=== PATIENT | male | born 1950 | race Caucasian/White ===

== ENCOUNTER → 2023-11-24 | Outpatient (CLI) | payer MEDICARE ==
[2023-11-24 15:38] LABS: VLDL Calculation 15.64 mg/dL (5.00-40.00)
[2023-11-24 15:39] LABS: ALT 24 U/L (10-49); AST 35 U/L (14-35); Albumin 4.3 g/dL (3.8-4.9); Albumin/Globulin Ratio 1.54 Ratio (1.60-3.17); Alkaline Phosphatase 94 U/L (41-126); BUN/Creat Ratio 12.29 Ratio (12.00-20.00); Blood Urea Nitrogen 8.6 mg/dL (9.0-27.0); Calcium 9.6 mg/dL (8.7-10.3); Carbon Dioxide 28.2 mmol/L (21.6-31.8); Chloride 100 mmol/L (96-109); Globulin 2.8 g/dL (1.6-3.3); Glucose 94 mg/dL (70-110); LDL Cholesterol,Calculated 73.9 mg/dL (0.0-131.0); Potassium 4.3 mmol/L (3.5-5.5); Sodium 141 mmol/L (135-145); T4, Free (Free Thyroxine) 1.09 ng/dL (0.80-1.80); Total Bilirubin 0.5 mg/dL (0.3-1.2); Total Protein 7.1 g/dL (6.2-8.2)
[2023-11-24 15:42] LABS: PSA Annual Screen 0.734 ng/mL (0.000-4.000)
[2023-11-24 15:48] LABS: HCT 45.3 % (39.6-50.0); HGB 14.9 g/dL (13.0-17.0); MCH 32.4 pg (27.0-32.0); MCHC 32.9 g/dL (32.0-37.0); MCV 98.5 FL (80.0-97.0); Mean Platelet Volume 9.6 FL (9.5-12.2); NRBC Per 100 WBC 0 X 10*3/uL (0.00-0.01); Platelet Count 315 X 10*3/uL (140-440); RDW 12.8 % (11.5-14.5); WBC 7.62 X 10*3/uL (4.50-10.00)
== END | disposition home or self-care (01) ==
LOC: LABWHC1 07:10
PROVIDERS: ATTEND Nurse Practitioner Acute Care
DX: Z00.00 Encounter for general adult medical examination without abnormal findings (principal); Z12.5 Encounter for screening for malignant neoplasm of prostate
CPT/HCPCS: 84439; 80061; 80053; 84443; 85027; 82306; 83036; 36415; G0103